=== PATIENT | female | born 1985 | race American Indian/Alaskan Native ===

== ENCOUNTER 2016-08-12 10:06 | Emergency (ER) | payer MEDICAID ==
[2016-08-12 11:11] VITALS: BP 118/78
--- NOTE | 2016-08-12 12:07 | XRay Report ---
RIGHT ANKLE RADIOGRAPHS INDICATION: Pain, swelling. COMPARISON: None similar at this institution. FINDINGS: AP, lateral and oblique right ankle radiographs demonstrate a spiral distal fibular fracture displaced by approximately 7 mm on the lateral view. Fracture may extend to the distal talofibular articulation. Top normal clear medial joint space at 4 mm. Malleoli appear intact. Diffuse ankle soft tissue swelling, lateral greater than medial. CONCLUSION: Right distal fibular acute fracture with overlying soft tissue swelling, as described. Clinical correlation to evaluate for ankle stability also suggested. Thank you for the opportunity to participate in this patient's care.
[2016-08-12 12:16] LABS: Basophils % (Auto) 0.4 % (0.0-1.8); Hematocrit 38.3 % (30.3-42.9); Hemoglobin 11.8 gm/dl (10.1-14.3); Mean Corpuscular HGB Conc 31 % (30-34); Mean Corpuscular Volume 75 fl (79-97); Platelet Count 245 K/mm3 (140-440); Red Blood Count 5.08 M/mm3 (3.65-5.03); Red Cell Distribution Width 14.5 % (13.2-15.2)
[2016-08-12 12:19] LABS: Mean Corpuscular Hemoglobin 23 pg (28-32)
[2016-08-12] MEDS ORDERED: NORCO 10/325 PO ONE (12:36)
--- NOTE | 2016-08-12 12:43 | Emergency Department Report ---
ED Lower Extremity HPI - General Chief Complaint: Extremity Injury, Lower Stated Complaint: RT ANKLE INJURY Time Seen by Provider: 08/12/16 12:29 Source: patient Mode of arrival: Wheelchair Limitations: No Limitations - History of Present Illness Initial Comments: 31 y/o female complain of right leg and foot pain after falling out of bed MD Complaint: leg injury, ankle injury Onset/Timin -: days(s) Injury: Leg: Right (edema ), Foot: Right (edema ) Type of Injury: other (fall ) Place: home Severity: mild Severity scale (0 -10): 5 Improves With: nothing Worsens With: nothing Context: fall Associated Symptoms: snap/pop sensation, swelling - Related Data Previous Rx's Medication Instructions Recorded Last Taken Type Acetaminophen/Codeine [Tylenol #3] 1 tab PO Q6H PRN #15 tab 09/06/14 Unknown Rx Cyclobenzaprine HCl [Flexeril 5mg] 5 mg PO TID PRN #15 tablet 09/06/14 Unknown Rx Ibuprofen [Motrin] 800 mg PO Q8H PRN #21 tablet 09/06/14 Unknown Rx HYDROcodone/APAP 10-325 [[place] 1 each PO Q8HR PRN #20 tablet 08/12/16 Unknown Rx 10/325] Allergies Allergy/AdvReac Type Severity Reaction Status Date / Time No Known Allergies Allergy Unverified 09/06/14 15:25 ED Review of Systems ROS: Stated complaint: RT ANKLE INJURY Other details as noted in HPI Constitutional: denies: chills, fever Eyes: denies: eye pain, eye discharge, vision change ENT: denies: ear pain, throat pain Respiratory: denies: cough, shortness of breath, wheezing Cardiovascular: denies: chest pain, palpitations Endocrine: no symptoms reported Gastrointestinal: denies: abdominal pain, nausea, diarrhea Genitourinary: denies: urgency, dysuria, discharge Musculoskeletal: joint swelling. denies: back pain, arthralgia Skin: denies: rash, lesions Neurological: denies: headache, weakness, paresthesias Psychiatric: denies: anxiety, depression Hematological/Lymphatic: denies: easy bleeding, easy bruising ED Past Medical Hx - Past Medical History Previous Medical History?: No - Surgical History Past Surgical History?: No - Social History Smoking Status: Never Smoker Substance Use Type: Alcohol - Medications Home Medications: Home Medications Medication Instructions Recorded Confirmed Last Taken Type Acetaminophen/Codeine [Tylenol #3] 1 tab PO Q6H PRN #15 tab 09/06/14 Unknown Rx Cyclobenzaprine HCl [Flexeril 5mg] 5 mg PO TID PRN #15 tablet 09/06/14 Unknown Rx Ibuprofen [Motrin] 800 mg PO Q8H PRN #21 tablet 09/06/14 Unknown Rx HYDROcodone/APAP 10-325 [[place] 1 each PO Q8HR PRN #20 tablet 08/12/16 Unknown Rx 10/325] ED Physical Exam - General Limitations: No Limitations General appearance: alert, in no apparent distress - Head Head exam: Present: atraumatic, normocephalic - Eye Eye exam: Present: normal appearance - ENT ENT exam: Present: mucous membranes moist - Neck Neck exam: Present: normal inspection. Absent: tenderness - Respiratory Respiratory exam: Present: normal lung sounds bilaterally. Absent: respiratory distress - Cardiovascular Cardiovascular Exam: Present: regular rate, normal rhythm. Absent: systolic murmur, diastolic murmur, rubs, gallop - GI/Abdominal GI/Abdominal exam: Present: soft, normal bowel sounds - Extremities Exam Extremities exam: Present: normal inspection - Expanded Lower Extremity Exam Right Lower Leg exam: Present: tenderness, swelling, erythema Ankle exam: Present: tenderness, swelling Foot/Toe exam: Present: tenderness, swelling Neuro vascular tendon exam: Present: no vascular compromise. Absent: pulse deficit - Back Exam Back exam: Present: normal inspection - Neurological Exam Neurological exam: Present: alert, oriented X3 - Psychiatric Psychiatric exam: Present: normal affect, normal mood - Skin Skin exam: Present: warm, dry, intact, normal color. Absent: rash ED Course Vital Signs 08/12/16 11:05 Temperature 97.7 F Pulse Rate 95 H Respiratory 18 Rate Blood Pressure 118/78 O2 Sat by Pulse 100 Oximetry ED Lower Extremity MDM - Lab Data Result diagrams: 08/12/16 12:01 - Radiology Data right ankle Impression: Right distal fibular acute fracture with overlying soft tissue swelling - Medical Decision Making right distal fibular fracture Critical care attestation.: If time is entered above; I have spent that time in minutes in the direct care of this critically ill patient, excluding procedure time. ED Disposition Clinical Impression: Right fibular fracture Qualifiers: Encounter type: initial encounter Fibula location: distal Fracture type: closed Fracture morphology: unspecified fracture morphology Qualified Code(s): S82.831A - Other fracture of upper and lower end of right fibula, initial encounter for closed fracture Disposition: DISCHARGED TO HOME OR SELFCARE Is pt being admited?: No Does the pt Need Aspirin: No Condition: Stable Instructions: Leg Fracture (ED) Prescriptions: HYDROcodone/APAP 10-325 [[place] 10/325] 1 each PO Q8HR PRN #20 tablet PRN Reason: Pain Referrals: PRIMARY CAREMD [Primary Care Provider] - 3-5 Days KENTON TAPIA MD [Staff Physician] - 3-5 Days Time of Disposition: 12:53
[2016-08-12 12:56] LABS: Alanine Aminotransferase 16 units/L (7-56); Albumin 4.4 g/dL (3.9-5); Albumin/Globulin Ratio 1.3 %; Alkaline Phosphatase 82 units/L (35-129); Anion Gap 20 mmol/L; Bilirubin,Total 0.4 mg/dL (0.1-1.2); Blood Urea Nitrogen 7 mg/dL (7-17); Calcium 9.2 mg/dL (8.4-10.2); Carbon Dioxide 22 mmol/L (22-30); Chloride 101.4 mmol/L (98-107); Glucose 85 mg/dL (65-100); Potassium 3.4 mmol/L (3.6-5.0); Sodium 140 mmol/L (137-145); Total Protein 7.9 g/dL (6.3-8.2)
== END 2016-08-12 13:44 | disposition home or self-care (01) ==
LOC: ED 10:06
DX: S82.831A Other fracture of upper and lower end of right fibula, initial encounter for closed fracture (principal); W06.XXXA Fall from bed, initial encounter; Y93.9 Activity, unspecified; Y92.9 Unspecified place or not applicable; Y99.9 Unspecified external cause status
CPT/HCPCS: 36415; 80053; 85025; 99283

== ENCOUNTER 2016-08-14 09:44 | Day surgery (SDC) | payer MEDICAID ==
--- NOTE | 2016-08-13 20:45 | History and Physical Report ---
History of Present Illness Date of examination: 08/13/16 Date of admission: 08/15/16 Chief complaint: 31 years old twisted, fell injuring her right ankle about 3 days ago. She is painful limitation of movement, unable to walk and is in the emergency room diagnosed with fractured ankle, being admitted for internal fixation. Past History Past Medical History: No medical history Medications and Allergies Allergies Allergy/AdvReac Type Severity Reaction Status Date / Time No Known Allergies Allergy Unverified 09/06/14 15:25 Home Medications Medication Instructions Recorded Confirmed Last Taken Type Acetaminophen/Codeine [Tylenol #3] 1 tab PO Q6H PRN #15 tab 09/06/14 08/13/16 Unknown Rx Cyclobenzaprine HCl [Flexeril 5mg] 5 mg PO TID PRN #15 tablet 09/06/14 08/13/16 Unknown Rx Ibuprofen [Motrin] 800 mg PO Q8H PRN #21 tablet 09/06/14 08/13/16 08/12/16 Rx HYDROcodone/APAP 10-325 [[place] 1 each PO Q8HR PRN #20 tablet 08/12/16 08/13/16 Unknown Rx 10/325] Active Meds: Active Medications Cefazolin Sodium (Ancef/Sterile Water 2 Gm/20 Ml) 2 gm in 20 mls @ 80 mls/hr IV PREOP NR PRN Reason: Protocol Stop: 08/14/16 23:59 Review of Systems All systems: negative Exam - Constitutional General appearance: Present: no acute distress, well-nourished - EENT Eyes: Present: PERRL ENT: hearing intact, clear oral mucosa - Neck Neck: Present: supple, normal ROM - Respiratory Respiratory effort: normal Respiratory: bilateral: CTA - Cardiovascular Heart Sounds: Present: S1 & S2. Absent: rub, click - Extremities Extremities: abnormal (Right ankle in splint, no obvious swelling, moderate tenderness along the malleolar area. The neurovascular deficit.) Peripheral Pulses: within normal limits - Abdominal General gastrointestinal: Present: soft, non-tender, non-distended, normal bowel sounds Female genitourinary: Present: normal - Integumentary Integumentary: Present: clear, warm, dry - Musculoskeletal Musculoskeletal: gait normal, strength equal bilaterally - Psychiatric Psychiatric: appropriate mood/affect, intact judgment & insight - Neurologic Neurologic: CNII-XII intact, moves all extremities Assessment and Plan - Patient Problems (1) Right fibular fracture Status: Acute Qualifiers: Encounter type: initial encounter Fibula location: distal Fracture type: closed Open fracture type: O Fracture morphology: F Fracture alignment: F Salter-Carpenter Fracture Type: S Fracture healing: F Plan to address problem: Open reduction internal fixation fracture lateral malleolus, evaluation of syndesmosis under anesthesia, and need fixation. Procedure, competitions and outcome discussed with.
[~2016-08-14 09:44] MED LIST: ANCEF/STERILE WATER 2 GM/20 ML 2 GM/20 ML SYRINGE IV NR
[2016-08-14] MEDS ORDERED: XYLOCAINE MPF 2% ONE (10:15)
[2016-08-14] MEDS ORDERED: SUBLIMAZE ONE (10:15)
--- NOTE | 2016-08-14 10:15 | Anesthesia Consultation ---
Anesthesia Consult and Med Hx Date of service: 08/14/16 - Airway Anesthetic Teeth Evaluation: Good ROM Head & Neck: Adequate Mental/Hyoid Distance: Adequate Mallampati Class: Class II Intubation Access Assessment: Good - Pulmonary Exam CTA: Yes - Cardiac Exam Cardiac Exam: No Murmur - Pre-Operative Health Status ASA Pre-Surgery Classification: ASA1 - Pulmonary Hx Smoking: No - Central Nervous System Hx Psychiatric Problems: No - Other Systems Hx Alcohol Use: Yes (SOCIALLY) Hx Substance Use: Yes (MARIJUANA LAST USE 08/12/16) Hx Cancer: No
--- NOTE | 2016-08-14 10:15 | Anesthesia Day of Surgery ---
Anesthesia Day of Surgery - Day of Surgery Patient Examined: Yes Patient H&P Reviewed: Yes Patient is NPO: Yes
[2016-08-14] MEDS ORDERED: DIPRIVAN 10 MG/ML IV ONE (10:16)
[2016-08-14] MEDS ORDERED: NACL BACTERIOSTATIC INFILTRATI ONE (10:37)
[2016-08-14] MEDS ORDERED: TYLENOL PO NR (10:38)
[2016-08-14] MEDS: LACTATED RINGERS 1,000 ML IV SCH ×2 (10:45→13:02)
[2016-08-14] MEDS ORDERED: VERSED IV NR (11:00)
[2016-08-14] MEDS ORDERED: ZOFRAN ONE (11:16)
[2016-08-14] MEDS ORDERED: DECADRON ONE (11:16)
[2016-08-14] MEDS ORDERED: WATER FOR IRRIG STERILE IR ONE (11:17)
[2016-08-14] MEDS ORDERED: DILAUDID ONE ×2 (11:17→12:34)
[2016-08-14] MEDS ORDERED: NACL 0.9% IR ONE (11:17)
--- NOTE | 2016-08-14 11:58 | Discharge Summary ---
Providers - Providers Date of discharge: 08/14/16 Attending physician: KENTON TAPIA Primary care physician: EZEKIEL DIAZ Hospitalization Reason for admission: Fx right lat malleolus Condition: Stable Procedures: ORIF right lat malleolus Hospital course: no complications Disposition: DISCHARGED TO HOME OR SELFCARE - Discharge Diagnoses (1) Right fibular fracture Status: Acute Qualifiers: Encounter type: initial encounter Fibula location: distal Fracture type: closed Open fracture type: O Fracture morphology: F Fracture alignment: F Salter-Carpenter Fracture Type: S Fracture healing: F Core Measure Documentation - Palliative Care Palliative Care/ Comfort Measures: Not Applicable - Core Measures Any of the following diagnoses?: none Exam - Constitutional Vitals: Temp Pulse Resp BP Pulse Ox 102 F H 109 H 22 109/84 100 08/14/16 10:20 08/14/16 10:20 08/14/16 10:20 08/14/16 10:20 08/14/16 10:20 Plan Activity: no driving until cleared by PCP, fall precautions Weight Bearing Status: Non-Weight Bearing Diet: regular Wound: per your surgeon's advice Durable Medical Equipment Needed Upon Discharge: Crutches Follow up with: EZEKIEL DIAZ MD [Primary Care Provider] - 7 Days KENTON TAPIA MD [Staff Physician] - 7 Days
[2016-08-14] MEDS ORDERED: ZOFRAN IV PRN (12:34)
[2016-08-14] MEDS: DILAUDID IV PRN ×4 (12:39→13:09)
[2016-08-14] MEDS ORDERED: NORCO 5/325 PO PRN (12:56)
--- NOTE | 2016-08-14 13:55 | Operative Report ---
PREOPERATIVE DIAGNOSIS: Fracture lateral malleolus, unstable. POSTOPERATIVE DIAGNOSIS: Fracture lateral malleolus, unstable with disruption of the syndesmosis. OPERATIVE PROCEDURE: Open reduction and internal fixation, fracture lateral malleolus and stabilization of the inferior tibiofibular joint. SURGEON: Bhupinder Pond MD BITUMINOUS PAVING MACHINE OPERATOR: Bre Sotelo CSA. ANESTHESIA: General. BLOOD LOSS: Minimal. TOURNIQUET TIME: 30 minutes. PROCEDURE IN DETAIL: The patient was taken to the surgery suite. Satisfactory analgesia obtained with general anesthetics. Right lower limb prepped with Betadine and satisfactorily draped and tourniquet inflated to 300 mmHg pressure following gravity exsanguination. Two small blisters were noticed over the anterior aspect of the ankle; however, this was far away from the surgical site and therefore it was elected to proceed with the operative procedure. Incision was made over the posterolateral aspect of the ankle, centering over the fibular fracture site, deepened into the periosteum, periosteum was elevated and the fracture was visualized. The rotational malrotation was corrected. Fracture was held in the reduced position and drill hole was made across the fracture site using 2.4 mm drillbit with proximal cortex overdrilled and a 4.0 cancellous screw was applied thereby providing inner fragment decompression. A 7-hole 1/3 tubular plate was then positioned, centered over the fracture site over the posterolateral aspect of the fibula. Drill holes were made to the distal fragment using 2.4 mm drill bit and 4.0 cancellous screws were applied. Through the proximal fragment in a similar fashion, a 3.5 cortical screw was applied. With the plate was stabilized under fluoroscopy, the syndesmosis was evaluated and appeared unstable and therefore a drill hole was made through the plate into the distal tibia and a 4.0 cancellous screw. Satisfactory length was applied providing bicortical fixation into the tibia and the syndesmosis was held in the reduced position with the ankle at 90 degree flexion. AP, lateral and oblique fluoroscopy was carried out showing anatomic reduction and application of internal fixation and mosque of the ankle mortise. No screw penetration was noticed into the ankle mortise. The wound was irrigated. Hemostasis appeared satisfactory, closed in layers in the standard fashion using 2-0 Vicryl, 3-0 nylon, and sterile dressings were applied. Ankle was immobilized in a posterior splint. She is to be discharged when discharge criteria are met. HOMEGOING INSTRUCTIONS: Elevation, localized packs, no weightbearing ambulation. Follow up at the office in 7-10 days. JOB# [id number] RVN/NTS
[2016-08-14 14:20] VITALS: BP 125/72
--- NOTE | 2016-08-14 15:16 | XRay Report ---
RIGHT ANKLE, 3 VIEWS History: Pain, swelling. Findings: Compared to 08/12/16. The distal fibular fracture has been internally fixated with metal plate and screws and is in anatomic alignment. The distal tibia and talar dome remain intact. Normal ankle mortise. Soft tissue swelling. Impression: Open reduction and internal fixation of the distal fibular fracture.
== END 2016-08-14 14:39 | disposition home or self-care (01) ==
LOC: OR 09:44
PROVIDERS: ATTEND Orthopaedic Surgery
DX: S82.61XA Displaced fracture of lateral malleolus of right fibula, initial encounter for closed fracture (principal); S93.491A Sprain of other ligament of right ankle, initial encounter; F12.90 Cannabis use, unspecified, uncomplicated; Z72.89 Other problems related to lifestyle; X58.XXXA Exposure to other specified factors, initial encounter
CPT/HCPCS: 27792; 27829; 73610; 81025; 97116; 97161; C1713; J0690; J1100; J1170; J2250; J2405; J2704; J3010; J7120; J2930